=== PATIENT | female | born 2000 | race African-American/Black ===

== ENCOUNTER 2019-09-15 17:01 | Emergency (ER) | payer SELFPAY ==
[2019-09-15] MEDS ORDERED: DIPH/PERTUSS(ACELL)/TETANUS VAC/PF 0.5 ML SYR (>=10YO) IM ONE (17:46)
[2019-09-15] MEDS ORDERED: LIDOCAINE 1% INJ-PF (10 MG/ML) 30 ML SDV INJ ONE (17:46)
--- NOTE | 2019-09-15 17:48 | ER Document Report ---
HPI - HPI Time Seen by Provider: 09/15/19 17:42 Pain Level: 2 Notes: Patient with small laceration to left hand that occurred just prior to arrival. Patient reports she was trying to close her pocket knife when the knife slipped and cut her hand. She is not sure when her last tetanus shot was. There is a 1 cm laceration at the base of the thumb of the left hand, there is no active bleeding noted at this time. - ROS Systems Reviewed and Negative: Yes All other systems reviewed and negative - DERM Skin Problems: Laceration Past Medical History - General Information source: Patient - Social History Smoking Status: Never Smoker Chew tobacco use (# tins/day): No Frequency of alcohol use: None Drug Abuse: None Family History: Reviewed & Not Pertinent - Medical History Medical History: Negative Surgical Hx: Negative - Immunizations Immunizations up to date: Yes Vertical Provider Document - CONSTITUTIONAL Notes: PHYSICAL EXAMINATION: GENERAL: Well-appearing, well-nourished and in no acute distress. HEAD: Atraumatic, normocephalic. EYES: Pupils equal round extraocular movements intact, conjunctiva are normal. ENT: Nares patent NECK: Normal range of motion LUNGS: No respiratory distress Musculoskeletal: Normal range of motion, cap refill less than 3 seconds, normal motor and sensation distal to injury. NEUROLOGICAL: Normal speech, normal gait. PSYCH: Normal mood, normal affect. SKIN: 1 cm laceration noted to base of left thumb. This approximates well there is no active bleeding noted. Course - Re-evaluation Re-evalutation: Laceration repaired under sterile technique, patient tolerated well. Patient will be placed on oral antibiotics as the laceration is on her hand. Her tetanus was updated. Patient understands ED return precautions and the need for suture removal. - Vital Signs Vital signs: Temp Pulse Resp BP Pulse Ox 98.6 F 88 12 118/73 97 09/15/19 17:07 09/15/19 17:07 09/15/19 17:07 09/15/19 17:07 09/15/19 17:07 Procedures - Laceration/Wound Repair Left hand Wound length (cm): 1 Wound's Depth, Shape: Superficial Laceration pre-procedure: Sterile PPE donned Anesthetic type: 1% Lidocaine Wound Repaired With: Sutures, Nakita, Steri-strips, Dermabond, Shailesh drain, Thrombi pad, Other Suture Size/Type: 5:0 Number of Sutures: 3 Layer Closure?: No Post-procedure wound care: Sterile dressing applied Post-procedure NV exam normal: Yes Discharge - Discharge Clinical Impression: Laceration Condition: Stable Disposition: HOME, SELF-CARE Additional Instructions: Laceration Care Your laceration has been sutured to keep the skin edges aligned during healing. The time of suture removal depends on the nature and location of your cut. Please follow the care instructions the doctor has outlined for you and return for further care, according to the schedule you've been given. Keep the wound and dressing clean. Unless you were told otherwise, you may shower daily, blotting the wound dry with a clean, unused towel. At other times, If the dressing gets wet or blood soaked, remove it and blot the wound dry, then reapply a new dressing. Unless you were instructed otherwise, dressings should be changed at least daily. If any signs of infection occur (swelling, redness, increasing tenderness, red streaks, tender lumps in the armpit or groin above the laceration, or fever), see the doctor immediately. Take antibiotics as prescribed. Please return to the emergency department or your primary care provider in 8-10 days for suture removal. Please return earlier if you develop any signs of infection such as increased redness, swelling, foul-smelling drainage or fever. Prescriptions: Cephalexin [Keflex] 500 mg PO BID #14 capsule
[2019-09-15 19:03] VITALS: BP 132/70
== END 2019-09-15 18:57 | disposition home or self-care (01) ==
LOC: ER 17:01
DX: S61.412A Laceration without foreign body of left hand, initial encounter (principal); W26.0XXA Contact with knife, initial encounter; Y93.89 Activity, other specified; Z23 Encounter for immunization
CPT/HCPCS: 99282; 90471; 90715; 12001; J3490

== ENCOUNTER 2019-09-27 13:26 | Emergency (ER) | payer SELFPAY ==
[2019-09-27 13:56] VITALS: BP 101/69
--- NOTE | 2019-09-27 14:28 | ER Document Report ---
HPI - HPI Pain Level: 0 Notes: HPI: 18-year-old female presenting for evaluation of a laceration to the left hand, patient was seen here 12 days ago for suture placement. Patient had 3 sutures placed. Patient reports mild discomfort at the site but otherwise full range of motion of the left thumb. She would like to go back to work. No redness no discharge per the patient. PHYSICAL EXAMINATION: Patient is able to fully flex and extend the left thumb. There is a 1.5 cm laceration over the thenar surface. It appears well approximated. No erythema no induration no fluctuance. Sensation is intact in the distal tip of the thumb to touch with capillary refill less than 3 seconds. Patient is able to text on her phone with no difficulty utilizing the thumb. - REPRODUCTIVE Reproductive: DENIES: : Past Medical History - Social History Smoking Status: Current Every Day Smoker Chew tobacco use (# tins/day): No Frequency of alcohol use: None Drug Abuse: None Family History: Reviewed & Not Pertinent Patient has homicidal ideation: No - Immunizations Immunizations up to date: Yes Course - Vital Signs Vital signs: Temp Pulse Resp BP Pulse Ox 98.7 F 70 20 101/69 100 09/27/19 14:13 09/27/19 13:55 09/27/19 13:55 09/27/19 13:55 09/27/19 13:55 Discharge - Discharge Clinical Impression: Visit for suture removal Condition: Stable Disposition: HOME, SELF-CARE Additional Instructions: Continue to keep the wound area clean and dry. Return for any concerns Forms: Return to Work
== END 2019-09-27 14:46 | disposition home or self-care (01) ==
LOC: ER 13:26
DX: S61.412D Laceration without foreign body of left hand, subsequent encounter (principal); X58.XXXD Exposure to other specified factors, subsequent encounter; F17.200 Nicotine dependence, unspecified, uncomplicated